=== PATIENT | female | born 1940 | race Caucasian/White ===

== ENCOUNTER 2017-11-25 21:12 | Emergency (ER) | payer MEDICARE, BC ==
[~2017-11-25] VITALS: Ht 157.5 cm; Wt 54.4 kg
[2017-11-25] MEDS ORDERED: HYDR25TA4 (21:31)
[2017-11-25] MEDS ORDERED: ATOR40TA (21:31)
--- NOTE | 2017-11-25 21:44 | NUR ---
MD LOCO BEDSIDE CONDUCTING LAC REPAIR
[2017-11-25] MEDS ORDERED: TDAP DIPH,PERTUSS,TET VAC/PF 0.5 ML DISP.SYRIN IM ONE ×2 (21:54→22:00)
--- NOTE | 2017-11-25 22:00 | NUR ---
Patient discharged to home in stable conditon. Written and verbal after care instructions given. Patient verbalizes understanding of instructions. Patient able to ambulate unassisted with steady gait. Patient left with all personal belongings.
[2017-11-25 22:47] VITALS: BP 128/56
== END 2017-11-25 22:00 | disposition home or self-care (01) ==
LOC: ER 21:12
DX: S51.811A Laceration without foreign body of right forearm, initial encounter (principal); I10 Essential (primary) hypertension; E78.00 Pure hypercholesterolemia, unspecified; Z91.09 Other allergy status, other than to drugs and biological substances; Z79.899 Other long term (current) drug therapy; W26.8XXA Contact with other sharp object(s), not elsewhere classified, initial encounter; Y93.89 Activity, other specified; Y92.89 Other specified places as the place of occurrence of the external cause; Y99.8 Other external cause status
CPT/HCPCS: 90715; A4663

== ENCOUNTER 2017-12-04 09:10 | Emergency (ER) | payer MEDICARE, BC ==
[~2017-12-04] VITALS: Ht 157.5 cm; Wt 54.4 kg
[~2017-12-04 09:10] MED LIST: ATOR40TA; HYDR25TA4
[2017-12-04] MEDS ORDERED: NEOMY/BACITRA/POLYMYXIN B OINT UD PACKET TP ONE (09:42)
[2017-12-04] MEDS: NEOMY/BACITRA/POLYMYXIN B OINT UD PACKET TP ONE (09:46)
--- NOTE | 2017-12-04 09:47 | NUR ---
Patient discharged to home in stable conditon. Written and verbal after care instructions given. Patient verbalizes understanding of instructions.
== END 2017-12-04 09:57 | disposition home or self-care (01) ==
LOC: ER 09:12
DX: S50.851A Superficial foreign body of right forearm, initial encounter (principal); I10 Essential (primary) hypertension; E78.00 Pure hypercholesterolemia, unspecified; W01.0XXA Fall on same level from slipping, tripping and stumbling without subsequent striking against object, initial encounter; Y93.89 Activity, other specified; Y92.89 Other specified places as the place of occurrence of the external cause; Y99.8 Other external cause status
CPT/HCPCS: A4663

== ENCOUNTER 2018-03-20 11:23 | Emergency (ER) | payer MEDICARE, BC ==
[~2018-03-20] VITALS: Ht 160 cm; Wt 59.0 kg
[2018-03-20] MEDS ORDERED: NEOMY/BACITRA/POLYMYXIN B OINT UD PACKET TP ONE ×2 (11:43→11:45)
--- NOTE | 2018-03-20 11:53 | NUR ---
PT WAS EVALUATED BY DR DODGE. PT WAS D/C TO HOME. D/C INSTRUCTIONS GIVEN TO THE PT.
[2018-03-20 11:56] VITALS: BP 141/78
== END 2018-03-20 11:57 | disposition home or self-care (01) ==
LOC: ER 11:23
DX: S70.312A Abrasion, left thigh, initial encounter (principal); I10 Essential (primary) hypertension; E78.00 Pure hypercholesterolemia, unspecified; Z91.09 Other allergy status, other than to drugs and biological substances; W01.0XXA Fall on same level from slipping, tripping and stumbling without subsequent striking against object, initial encounter; Y93.89 Activity, other specified; Y92.89 Other specified places as the place of occurrence of the external cause; Y99.8 Other external cause status
CPT/HCPCS: 99283; A4663